=== PATIENT | female | born 1935 | race Two or more races ===

== ENCOUNTER → 2017-08-10 | Outpatient (CLI) | payer OTHER | END | disposition home or self-care (01) | LOC: US 07:20 | DX: K83.8 Other specified diseases of biliary tract (principal); Z90.710 Acquired absence of both cervix and uterus | CPT/HCPCS: 76700; 76856 ==

== ENCOUNTER 2020-09-10 16:58 | Emergency (ER) | payer OTHER ==
[~2020-09-10] VITALS: Ht 144.8 cm; Wt 53.2 kg
[2020-09-10 17:55] VITALS: BP 152/65
[2020-09-10] MEDS ORDERED: DEXAMETHASONE SOD PHOS 20 MG/5 ML VIAL. PO ONE (18:00)
[2020-09-10] MEDS ORDERED: HYDR-2761 PO ×2 (18:45→19:14)
--- NOTE | 2020-09-10 18:51 | ED.ADGEN ---
Past Medical History Past Medical History: Arthritis, Diabetes-Type II Past Surgical History: Hysterectomy, Other Additional Past Surgical Histo: CATARACT Smoking Status: Never Smoker Alcohol Use: None General Adult EDM: Chief Complaint: LOWER EXT PAIN HPI: HPI: Patient is a 85 year old female, accompanied by her daughter, who presents emergency department with complaints of pain and swelling in her left knee for the last 2 weeks. States she was seen by her primary care doctor earlier this week who referred her to orthopedics but patient is not able to get into orthopedics for a whole month. She denies any recent injury, fall, fever, redness, body aches, numbness, tingling, or weakness. Patient has been wearing a knee sleeve with no relief of her discomfort. She currently rates the pain a 7 out of 10 on the pain scale, the pain increases with weight bearing, movement, and palpation. Review of Systems: Review of Systems: Complete ROS is negative unless otherwise noted in HPI. Current Medications: Current Medications Medications (Trade) Dose Ordered Sig/Louis Start Time Stop Time Status Last Admin Dose Admin Acetaminophen/ Hydrocodone Bitart (Lortab 5/325) 1 tab 1X ONCE 09/10/20 19:45 09/10/20 19:22 DC 09/10/20 19:20 1 TAB Dexamethasone Sodium Phosphate (Decadron) 10 mg 1X ONCE 09/10/20 18:00 09/10/20 18:01 UNV Allergies: Allergies: Allergies Coded Allergies Type Severity Reaction Last Updated Verified No Known Drug Allergies 09/10/20 No Physical Exam: PE: See Above Constitutional: Well developed, well nourished, no acute distress, non-toxic appearance. [] HENT: Normocephalic, atraumatic, bilateral external ears normal, nose normal. [] Eyes: PERRLA, EOMI, conjunctiva normal, no discharge. [] Neck: Normal range of motion, no stridor. [] Cardiovascular:Heart rate regular rhythm Lungs & Thorax: Respirations even and unlabored, no retractions, no respiratory distress Skin: Warm, dry, no erythema, no rash. [] Extremities: Left knee: No bony deformity, or crepitus, diffuse tenderness to palpation, 1+ edema, no erythema, no warmth, negative anterior and posterior drawer testing. Cap refill less than 2 seconds, no cyanosis Neurologic: Alert and oriented X 3, no focal deficits noted. [] Psychologic: Affect normal, judgement normal, mood normal. [] Current Patient Data: Vital Signs: Vital Signs Date Time Temp Pulse Resp B/P (MAP) Pulse Ox O2 Delivery O2 Flow Rate FiO2 09/10/20 19:20 16 97 Room Air 09/10/20 17:55 97.6 67 152/65 (94) 97.6 EKG: EKG: [] Heart Score: C/O Chest Pain: No Radiology/Procedures: Radiology/Procedures: [] Course & Med Decision Making: Course & Med Decision Making Pertinent Labs and Imaging studies reviewed. (See chart for details) []Did no personally evaluate the patient. Treatment and care plan was independently made by MLP. I was available for consult. Pooja Disclaimer: Pooja Disclaimer: This electronic medical record was generated, in whole or in part, using a voice recognition dictation system. Departure Departure Impression: Primary Impression: Left knee pain Additional Impression: Vázquez's cyst of knee Disposition: HOME / SELF CARE / HOMELESS Condition: STABLE Referrals: CORINNA PANDA MD Patient Instructions: Vázquez's Cyst, Knee Pain, [id number] Additional Instructions: Fill the prescription and take as directed. BE sure to take a stool softener and drink plenty of fluids while you take the pain medication. Follow up with Dr. Quintana or Dr. Panda for re-evaluation. Return to the ER if symptoms worsen or fever develops. Did no personally evaluate the patient. Treatment and care plan was independently made by MLP. I was available for consult. Scripts Hydrocodone Bit/Acetaminophen (HYDROCODONE-APAP 5-325 ) 1 Tab Tablet 0.5-1 TAB PO PRN Q6HRS PRN for SEVERE PAIN 7-10 for 5 Days, #10 TAB 0 Refills Prov: IRMA RAGLAND [employer] 09/10/20 Problem Qualifiers Primary Impression: Left knee pain Chronicity: acute Qualified Codes: M25.562 - Pain in left knee Additional Impression: Vázquez's cyst of knee Laterality: left Qualified Codes: M71.22 - Synovial cyst of popliteal space [Vázquez], left knee IRMA [employer]LAND [employer] September 10, 2020 18:51 BETSEY MEADOWS I DO September 12, 2020 18:08
--- NOTE | 2020-09-10 18:54 | RAD ---
Exam: Left knee 3 views INDICATION: Left knee pain and swelling TECHNIQUE: Frontal, lateral oblique views of the left knee Comparisons: None FINDINGS: Diffuse osteopenia. No acute or healed fractures. There is soft tissue prominence in the popliteal fo ssa. Joint spaces are well-maintained. IMPRESSION: 1. Soft tissue prominence and popliteal fossa, correlate for Vázquez's cyst. 2. No acute osseous abnormality identified. Electronically signed by: Eric Wild MD (09/10/2020 6:51 PM) MIRANDA
[2020-09-10] MEDS ORDERED: HYDROcodone/APAP 5/325MG 1 TAB TABLET PO ONE (19:45)
== END 2020-09-10 19:12 | disposition home or self-care (01) ==
LOC: ER 16:58
DX: M71.22 Synovial cyst of popliteal space [Baker], left knee (principal); M25.562 Pain in left knee; M19.90 Unspecified osteoarthritis, unspecified site; E11.9 Type 2 diabetes mellitus without complications
CPT/HCPCS: 73562; 99283